=== PATIENT | female | born 1975 ===

== ENCOUNTER 2021-03-11 11:07 | Outpatient (CLI) | payer OTHER ==
[2021-04-23] MEDS ORDERED: LEVOTHYROXINE25 MCG (20:53)
== END 2021-03-11 11:11 | disposition home or self-care (01) ==
LOC: SONOGRAMA 11:07
PROVIDERS: ATTEND Pathology Anatomic Pathology & Clinical Pathology
DX: E04.1 Nontoxic single thyroid nodule (principal)

== ENCOUNTER → 2021-04-23 | Emergency (ER) | payer OTHER ==
[~2021-04-23] VITALS: Ht 175.3 cm; Wt 72.6 kg
[~2021-04-23] MED LIST: LEVOTHYROXINE25 MCG
== END | disposition home or self-care (01) ==
LOC: ER 20:13
DX: R30.0 Dysuria (principal); N89.8 Other specified noninflammatory disorders of vagina